=== PATIENT | female | born 1955 | race Caucasian/White ===

== ENCOUNTER 2023-11-17 08:28 | Inpatient (IN) | payer OTHER ==
[~2023-11-17] VITALS: Ht 167.6 cm; Wt 70.3 kg
[2023-11-17 08:34] VITALS: BP 166/95; PULSE 99; RESP 17; TEMP 98; O2SAT 98
[2023-11-17 09:37] LABS: BASOPHILS # (AUTO) 0.1 K/uL (0.00-0.22); BASOPHILS % (AUTO) 1.4 % (0.0-2.0); EOSINOPHILS # (AUTO) 0.1 K/uL (0-0.4); EOSINOPHILS % (AUTO) 1.3 % (0.0-4.0); HEMOGLOBIN 11.7 g/dL (12.0-16.0); LYMPHOCYTES # (AUTO) 1.7 K/uL (2.5-16.5); MEAN CORPUSCULAR HEMOGLOBIN 32 pg (27-31); MEAN CORPUSCULAR HGB CONC 33 g/dL (33-37); MEAN CORPUSCULAR VOLUME 95.3 fL (80-94); MONOCYTES # (AUTO) 0.6 K/uL (0.8-1.0); MONOCYTES % (AUTO) 6.7 % (1.7-9.3); NEUTROPHILS % (AUTO) 70.6 % (42.2-75.2); PLATELET COUNT (AUTO) 334 K/uL (140-450); RED BLOOD CELL COUNT(AUTO) 3.68 MIL/uL (4.20-5.40); RED CELL DISTRIBUTION WIDTH 13.8 % (11.6-13.7); WHITE BLOOD COUNT (AUTO) 8.4 K/uL (4.8-10.8)
[2023-11-17] MEDS: DEXTROSE 50% 50 ML SYR IVP ONE (09:42)
[2023-11-17 09:58] LABS: ANION GAP 12.4 (8-16); CALCIUM 8.9 mg/dL (8.5-10.1); CARBON DIOXIDE 27.2 mmol/L (21-32); CREATININE 1.3 mg/dL (0.6-1.3); POTASSIUM 3.6 mmol/L (3.5-5.1)
[2023-11-17 10:30] LABS: BILIRUBIN,URINE NEGATIVE (NEGATIVE); BLOOD, URINE NEGATIVE (NEGATIVE); LEUKOCYTE ESTERASE ,URINE 2+ (NEGATIVE); NITRITE, URINE NEGATIVE (NEGATIVE); PROTEIN,URINE TRACE (NEGATIVE); UGLUCOSE 1+ (NEGATIVE); UROBILINOGEN,URINE 0.2 EU/dL (0.2 - 1)
[2023-11-17] MEDS ORDERED: DEXTROSE 50% 50 ML SYR IVP PRN (10:50)
[2023-11-17] MEDS ORDERED: ONDANSETRON 4 MG/2 ML VIAL IVP PRN (10:50)
[2023-11-17] MEDS ORDERED: ALBUTEROL 0.083% 2.5 MG/3 ML NEBU INH PRN (10:50)
[2023-11-17] MEDS ORDERED: ACETAMINOPHEN 325 MG TAB PO PRN (10:50)
[2023-11-17 11:00] LABS: APPEARANCE,URINE SLIGHTLY HAZY (CLEAR); COLOR,URINE YELLOW (YELLOW)
[2023-11-17 11:41] LABS: RBC,URINE 0-5 /HPF (0-5)
[2023-11-17] MEDS: BLOOD GLUCOSE MONITORING 1 DEV DEV FS SCH (11:41)
[2023-11-17 11:42] LABS: BACTERIA,URINE FEW /HPF (None Seen); SQUAMOUS EPITHELIAL CELL,UR 0-3 (FEW) /LPF (0-3 (FEW))
[2023-11-17] MEDS ORDERED: METF-352 PO (12:16)
[2023-11-17] MEDS ORDERED: GLIP5TAB24 PO (12:16)
[2023-11-17] MEDS ORDERED: LOSA50TA57 PO (12:16)
[2023-11-17] MEDS ORDERED: INSU100I7 SUBQ (12:16)
[2023-11-17] MEDS: DEXT 5% /NACL 0.9% 1,000 ML IV SCH (12:43)
[2023-11-17 16:00] VITALS: BP 159/84; PULSE 85; PULSE 92; RESP 18; TEMP 98.4; O2SAT 98
[2023-11-17 16:58] VITALS: PULSE 86; RESP 18; O2SAT 98
[2023-11-17 20:00] VITALS: BP 136/68; PULSE 84; PULSE 87; RESP 18; TEMP 96.7; O2SAT 96
[2023-11-17 21:19] VITALS: O2SAT 98
[2023-11-17 23:56] VITALS: PULSE 70
[2023-11-18] VITALS (7 sets, daily range): BP systolic 124–145; BP diastolic 68–89; PULSE 74–98; RESP 18–19; TEMP 96.9–98; O2SAT 94–100
[2023-11-18 05:40] LABS: BASOPHILS % (AUTO) 0.5 % (0.0-2.0); EOSINOPHILS # (AUTO) 0.2 K/uL (0-0.4); EOSINOPHILS % (AUTO) 2.4 % (0.0-4.0); HEMATOCRIT 30.9 % (36-48); HEMOGLOBIN 10.5 g/dL (12.0-16.0); LYMPHOCYTES # (AUTO) 2.5 K/uL (2.5-16.5); LYMPHOCYTES % (AUTO) 33.1 % (20.5-51.1); MEAN CORPUSCULAR HEMOGLOBIN 32 pg (27-31); MEAN CORPUSCULAR HGB CONC 34 g/dL (33-37); MEAN CORPUSCULAR VOLUME 94.4 fL (80-94); MONOCYTES # (AUTO) 0.7 K/uL (0.8-1.0); MONOCYTES % (AUTO) 8.7 % (1.7-9.3); NEUTROPHILS # (AUTO) 4.2 K/uL (1.8-7.7); NEUTROPHILS % (AUTO) 55.3 % (42.2-75.2); PLATELET COUNT (AUTO) 321 K/uL (140-450); RED BLOOD CELL COUNT(AUTO) 3.28 MIL/uL (4.20-5.40); RED CELL DISTRIBUTION WIDTH 13.8 % (11.6-13.7); WHITE BLOOD COUNT (AUTO) 7.6 K/uL (4.8-10.8)
[2023-11-18 06:03] LABS: ANION GAP 10.4 (8-16); CALCIUM 8.3 mg/dL (8.5-10.1); CARBON DIOXIDE 28.3 mmol/L (21-32); CREATININE 1.2 mg/dL (0.6-1.3); POTASSIUM 3.7 mmol/L (3.5-5.1)
[2023-11-18] MEDS: MAGNESIUM OXIDE 400 MG TAB PO SCH (08:09)
[2023-11-18] MEDS ORDERED: MAGNESIUM OXIDE 400 MG TAB PO ONE (09:20)
[2023-11-19] VITALS: BP 144/75; PULSE 83; RESP 18; TEMP 96.9; O2SAT 94
[2023-11-19 04:00] VITALS: BP 118/65; PULSE 73; RESP 18; TEMP 96.6; O2SAT 94
[2023-11-19 07:12] VITALS: O2SAT 97
[2023-11-19 07:20] LABS: ANION GAP 10.6 (8-16); CALCIUM 8.4 mg/dL (8.5-10.1); CARBON DIOXIDE 28.6 mmol/L (21-32); CREATININE 1.2 mg/dL (0.6-1.3); POTASSIUM 4.2 mmol/L (3.5-5.1)
[2023-11-19 08:00] VITALS: BP 134/68; PULSE 117; PULSE 72; RESP 17; RESP 7; TEMP 97.1; O2SAT 95
[2023-11-19 08:29] LABS: BASOPHILS % (AUTO) 0.3 % (0.0-2.0); EOSINOPHILS # (AUTO) 0.3 K/uL (0-0.4); EOSINOPHILS % (AUTO) 3.7 % (0.0-4.0); HEMATOCRIT 32.6 % (36-48); HEMOGLOBIN 10.9 g/dL (12.0-16.0); LYMPHOCYTES # (AUTO) 2.4 K/uL (2.5-16.5); LYMPHOCYTES % (AUTO) 35.9 % (20.5-51.1); MEAN CORPUSCULAR HEMOGLOBIN 32 pg (27-31); MEAN CORPUSCULAR HGB CONC 34 g/dL (33-37); MEAN CORPUSCULAR VOLUME 94.7 fL (80-94); MONOCYTES # (AUTO) 0.6 K/uL (0.8-1.0); MONOCYTES % (AUTO) 9.2 % (1.7-9.3); NEUTROPHILS # (AUTO) 3.4 K/uL (1.8-7.7); NEUTROPHILS % (AUTO) 50.9 % (42.2-75.2); PLATELET COUNT (AUTO) 344 K/uL (140-450); RED BLOOD CELL COUNT(AUTO) 3.44 MIL/uL (4.20-5.40); RED CELL DISTRIBUTION WIDTH 13.5 % (11.6-13.7); WHITE BLOOD COUNT (AUTO) 6.8 K/uL (4.8-10.8)
[2023-11-19] MEDS ORDERED: BACTO TP (12:43)
[2023-11-19] MEDS: CHLORHEXADINE GLUC 2% CLOTH TP SCH (13:05)
[2023-11-19] MEDS: MUPIROCIN CA NASAL 2% 1GM TUBE NS SCH (13:05)
== END 2023-11-19 13:45 | disposition home or self-care (01) | DRG 637 ==
LOC: MED 08:28 → MTU 10:49
PROVIDERS: ADMIT Student in an Organized Health Care Education/Training Program; ATTEND Student in an Organized Health Care Education/Training Program
DX: E11.649 Type 2 diabetes mellitus with hypoglycemia without coma (principal); G93.41 Metabolic encephalopathy; R71.0 Precipitous drop in hematocrit; N39.0 Urinary tract infection, site not specified; I10 Essential (primary) hypertension
CPT/HCPCS: 36415; 71045; 80048; 81001; 82948; 83036; 83735; 83880; 84484; 85025; 87040; 87081; 87086; 93005; 96374; 97110; 97116; 97163-GP; 99285; J0696; J7060